=== PATIENT | female | born 1970 | race Caucasian/White ===

== ENCOUNTER 2025-05-02 17:13 | Inpatient (IN) | payer MEDICAID, OTHER ==
[~2025-05-02] VITALS: Ht 162.6 cm; Wt 78.9 kg
[~2025-05-02 17:13] MED LIST: BUPR150T4 PO; DICL75TA5 PO; DOCU-274 PO; GABA-534 PO; HYDR25TA4 PO; METO50TA7 PO; RANI150C4 PO; SERT-440 PO; TRAZ300T2 PO
[2025-05-02] MEDS: IV NORMAL SALINE 1000 ML BAG IV ONE (17:45)
[2025-05-02] MEDS ORDERED: HYDROMORPHONE 1 MG/1 ML DISP.SYRIN ONE (17:53)
[2025-05-02] MEDS: ONDANSETRON 4 MG/2 ML VIAL IV ONE (17:53)
[2025-05-02] MEDS ORDERED: ONDANSETRON 4 MG/2 ML VIAL ONE (17:53)
[2025-05-02] MEDS: HYDROMORPHONE 1 MG/1 ML DISP.SYRIN IV ONE (17:55)
[2025-05-02 17:58] LABS: PLATELET COUNT (AUTO) 225 K/uL (179-408); RED BLOOD CELL COUNT(AUTO) 5.22 MIL/uL (3.63-4.92); RED CELL DISTRIBUTION WIDTH 14.8 % (12.3-17.7); WHITE BLOOD COUNT (AUTO) 8.0 K/uL (3.8-11.8)
[2025-05-02 18:08] LABS: CREATININE 0.8 mg/dL (0.6-1.3); SODIUM SERUM 140 mmol/L (136-145); UREA NITROGEN, BLOOD 8 mg/dL (7-18)
[2025-05-02 18:13] LABS: ASPARTATE AMINOTRANSFERASE 7 U/L (15-37); TOTAL PROTEIN, SERUM 7.2 g/dL (6.4-8.2)
[2025-05-02] MEDS ORDERED: POTASSIUM CHLORIDE 50 ML ONE ×4 (18:18→21:38)
[2025-05-02] MEDS: POTASSIUM CHLORIDE 50 ML IV SCH (18:22)
[2025-05-02] MEDS ORDERED: IOHEXOL 300MG/ML 100 ML INFUS..BTL ONE (18:31)
[2025-05-02] MEDS ORDERED: HALOPERIDOL LACTATE 5 MG/1 ML VIAL ONE (19:29)
[2025-05-02] MEDS: HALOPERIDOL LACTATE 5 MG/1 ML VIAL IV ONE (19:45)
[2025-05-02] MEDS ORDERED: REMEDY ESSENTIAL ZINC PASTE 113 GM TP PRN (21:30)
[2025-05-02] MEDS ORDERED: IV D5 1/2 NS 1000 ML 1,000 ML IV PRN (21:30)
[2025-05-02 23:30] VITALS: BP 97/61; TEMP 97.5; O2SAT 99
[2025-05-03] VITALS (7 sets, daily range): BP systolic 96–167; BP diastolic 60–84; TEMP 97–98.4; O2SAT 97–100
[2025-05-03] MEDS ORDERED: IV DEXTROSE 5W-0.45% NS + KCL 1,000 ML IV ONE (00:09)
[2025-05-03] MEDS: MORPHINE SULFATE 2 MG/1 ML DISP.SYRIN IV PRN (00:10)
[2025-05-03] MEDS: POTASSIUM CHLORIDE 40 MEQ in IV D5 1/2 NS 1000 ML 1,000 ML IV SCH (00:18)
[2025-05-03 06:38] LABS: PLATELET COUNT (AUTO) 214 K/uL (179-408); RED BLOOD CELL COUNT(AUTO) 4.79 MIL/uL (3.63-4.92); RED CELL DISTRIBUTION WIDTH 14.5 % (12.3-17.7); WHITE BLOOD COUNT (AUTO) 5.1 K/uL (3.8-11.8)
[2025-05-03 07:02] LABS: CREATININE 0.8 mg/dL (0.6-1.3); SODIUM SERUM 142.0 mmol/L (136-145); UREA NITROGEN, BLOOD 6.0 mg/dL (7-18)
[2025-05-03] MEDS: PANTOPRAZOLE SODIUM 40 MG VIAL IV SCH (09:04)
[2025-05-03] MEDS ORDERED: RAMI2.5C55 PO (10:27)
[2025-05-03] MEDS: POTASSIUM CHLORIDE 40 MEQ in IV D5 1/2 NS 1000 ML 1,000 ML IV PRN (10:27)
[2025-05-03] MEDS ORDERED: MOUNJARO SQ (10:30)
[2025-05-03] MEDS ORDERED: ATOR10TA PO (10:32)
[2025-05-03] MEDS ORDERED: QUET400T13 PO (10:32)
[2025-05-03] MEDS ORDERED: TIZA4TAB5 PO (10:33)
[2025-05-03] MEDS ORDERED: CHOL2000 PO (10:34)
[2025-05-03] MEDS ORDERED: CELE100C98 PO (10:34)
[2025-05-03] MEDS ORDERED: PANT40TA49 PO (10:35)
[2025-05-03] MEDS ORDERED: FOLI1TAB27 PO (10:36)
[2025-05-03] MEDS ORDERED: SUCCINYLCHOLINE CHLORIDE 200 MG/10 ML VIAL ONE (17:00)
[2025-05-03] MEDS ORDERED: PROPOFOL 200 MG/20 ML BOTTLE ONE ×2 (17:00)
[2025-05-03] MEDS ORDERED: LIDOCAINE-MPF 2% 5 ML VIAL ONE (17:00)
[2025-05-03] MEDS: ONDANSETRON 4 MG/2 ML VIAL IV PRN (21:29)
[2025-05-04 10:30] VITALS: BP 138/76; TEMP 98.6; O2SAT 99
[2025-05-04 14:56] LABS: *BILIRUBIN,URIN NEGATIVE (NEGATIVE); *CLARITY,URINE CLEAR (CLEAR); *COLOR,URINE LIGHT YELLOW (YELLOW); *KETONES,URINE NEGATIVE (NEGATIVE); *PROTEIN,URINE NEGATIVE (NEGATIVE); *UROBILINOGEN,URINE 0.2 E.U./dl (NORMAL); LEUKOCYTE ESTERASE ,URINE TRACE (NEGATIVE); NITRITE, URINE NEGATIVE (NEGATIVE); UGLUCOSE NEGATIVE (NEGATIVE)
[2025-05-04 14:57] LABS: *BLOOD, URINE TRACE (NEGATIVE)
[2025-05-04 15:04] LABS: SQUAMOUS EPITHELIAL CELL,UR FEW /HPF (NONE SEEN)
[2025-05-04 16:00] VITALS: O2SAT 98
[2025-05-04 16:12] VITALS: BP 127/68; TEMP 97.8; O2SAT 99
[2025-05-04] MEDS ORDERED: MIDAZOLAM HCL 2 MG/2 ML VIAL ONE (17:53)
[2025-05-04] MEDS ORDERED: SUCCINYLCHOLINE CHLORIDE 200 MG/10 ML VIAL ONE (18:00)
[2025-05-04] MEDS ORDERED: LIDOCAINE-MPF 2% 5 ML VIAL ONE (18:00)
[2025-05-04] MEDS ORDERED: GLYCOPYRROLATE 0.2 MG/ML VIAL ONE (18:00)
[2025-05-04] MEDS ORDERED: PROPOFOL 200 MG/20 ML BOTTLE ONE ×2 (18:00)
[2025-05-04 19:00] VITALS: BP 146/82; TEMP 97.6; O2SAT 94
[2025-05-04 19:27] VITALS: BP 144/93
[2025-05-04] MEDS: GOLYTELY 4000 ML BOTTLE PO ONE (21:24)
[2025-05-04] MEDS: ACETAMINOPHEN 325 MG TABLET PO PRN (23:09)
[2025-05-05 03:49] VITALS: O2SAT 98
[2025-05-05 04:00] VITALS: BP 129/85; TEMP 97.9; O2SAT 98
[2025-05-05 06:57] LABS: PLATELET COUNT (AUTO) 228 K/uL (179-408); RED BLOOD CELL COUNT(AUTO) 5.09 MIL/uL (3.63-4.92); RED CELL DISTRIBUTION WIDTH 14.8 % (12.3-17.7); WHITE BLOOD COUNT (AUTO) 6.0 K/uL (3.8-11.8)
[2025-05-05 07:14] LABS: CREATININE 0.8 mg/dL (0.6-1.3); SODIUM SERUM 138.0 mmol/L (136-145); UREA NITROGEN, BLOOD 4.0 mg/dL (7-18)
[2025-05-05] MEDS: OLANZAPINE 10 MG VIAL IM PRN (08:50)
[2025-05-05 10:46] VITALS: BP 158/81; TEMP 97.7; O2SAT 98
[2025-05-05 15:23] VITALS: BP 147/78; TEMP 98.2; O2SAT 94
[2025-05-05 20:56] VITALS: BP 156/84; TEMP 97.7; O2SAT 98
[2025-05-06 05:59] VITALS: BP 158/71; TEMP 98.1; O2SAT 100
[2025-05-06 06:58] LABS: PLATELET COUNT (AUTO) 225 K/uL (179-408); RED BLOOD CELL COUNT(AUTO) 5.37 MIL/uL (3.63-4.92); RED CELL DISTRIBUTION WIDTH 14.9 % (12.3-17.7); WHITE BLOOD COUNT (AUTO) 5.7 K/uL (3.8-11.8)
[2025-05-06 07:16] LABS: CREATININE 0.7 mg/dL (0.6-1.3); SODIUM SERUM 143.0 mmol/L (136-145); UREA NITROGEN, BLOOD 2.0 mg/dL (7-18)
[2025-05-06 11:52] VITALS: BP 148/61; TEMP 98.1; O2SAT 99
[2025-05-06] MEDS ORDERED: HYDROCODONE/APAP 5-325MG TABLET PO PRN (12:45)
[2025-05-06] MEDS ORDERED: ONDA4TAB11 PO (15:29)
[2025-05-06] MEDS ORDERED: SUCR1ORA4 PO (15:29)
[2025-05-06 15:30] VITALS: BP 147/84; TEMP 98.5; O2SAT 98
[2025-05-06] MEDS ORDERED: SUCRALFATE 1 G/10 ML LIQUID UDC GT SCH (16:30)
[2025-05-07] MEDS ORDERED: PANTOPRAZOLE SODIUM 40 MG TABLET.DR PO SCH (07:00)
== END 2025-05-06 17:25 | disposition home or self-care (01) | DRG 254 ==
LOC: ER 17:15 → MEDSURG3 22:38 → UNDOADMIN 22:38
PROVIDERS: ADMIT Nurse Practitioner Acute Care; ATTEND Nurse Practitioner Acute Care
PROC: 0DC98ZZ Extirpation of Matter from Duodenum, Via Natural or Artificial Opening Endoscopic (ICD-10-PCS; principal; 2025-05-03 17:30)
PROC: 0DQ98ZZ Repair Duodenum, Via Natural or Artificial Opening Endoscopic (ICD-10-PCS; principal; 2025-05-03 17:30)
PROC: 0DJ08ZZ Inspection of Upper Intestinal Tract, Via Natural or Artificial Opening Endoscopic (ICD-10-PCS; 2025-05-04)
DX: T18.2XXA Foreign body in stomach, initial encounter (principal); F29 Unspecified psychosis not due to a substance or known physiological condition; S36.39XA Other injury of stomach, initial encounter; M79.7 Fibromyalgia; W44.H1XA Needle entering into or through a natural orifice, initial encounter; Y92.89 Other specified places as the place of occurrence of the external cause; K29.70 Gastritis, unspecified, without bleeding; N80.9 Endometriosis, unspecified; E78.5 Hyperlipidemia, unspecified; Z90.710 Acquired absence of both cervix and uterus; F39 Unspecified mood [affective] disorder; F32.A Depression, unspecified; M50.322 Other cervical disc degeneration at C5-C6 level; I10 Essential (primary) hypertension; K59.00 Constipation, unspecified; E11.9 Type 2 diabetes mellitus without complications; Z79.85 Long-term (current) use of injectable non-insulin antidiabetic drugs; Z79.899 Other long term (current) drug therapy; Z91.51 Personal history of suicidal behavior; Z90.49 Acquired absence of other specified parts of digestive tract; Z88.0 Allergy status to penicillin; R05.3 Chronic cough; U09.9 Post COVID-19 condition, unspecified; K57.30 Diverticulosis of large intestine without perforation or abscess without bleeding; J98.11 Atelectasis; E87.6 Hypokalemia; M79.5 Residual foreign body in soft tissue
CPT/HCPCS: 36415; 71045; 74018; 83690; 83735; 84100; 84484; 85018; 85025; 86850; 86900; 86901; 94760; A4606; A4663; G0378; J0330; J1171; J1630; J2250; J2270; J2358; J2405; J2470; J3480; J3490; J7040; Q9967